=== PATIENT | female | born 2000 | race Hispanic/Latino ===

== ENCOUNTER 2020-02-17 11:30 | Emergency (ER) | payer OTHER, SELFPAY ==
[2020-02-17 11:44] VITALS: BP 118/61; PULSE 88; RESP 16; TEMP 36.7; O2SAT 100
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
== END 2020-02-17 12:12 | disposition home or self-care (01) ==
PROVIDERS: Emergency Provider Nurse Practitioner; PCP Physician Assistant
DX: L25.9 Unspecified contact dermatitis, unspecified cause (principal); K21.9 Gastro-esophageal reflux disease without esophagitis
CPT/HCPCS: 99213; G0463

== ENCOUNTER 2020-02-23 16:49 | Emergency (ER) | payer OTHER, SELFPAY ==
[2020-02-23 17:01] VITALS: BP 96/62; PULSE 94; RESP 16; TEMP 37.2; O2SAT 99
--- NOTE | 2020-02-23 17:04 | ED.GENADULT ---
HPI - General Adult General Chief complaint: Extremity Injury, Lower Stated complaint: left foot sprain Time Seen by Provider: 02/23/20 17:28 Source: patient and RN notes reviewed Limitations: no limitations History of Present Illness HPI narrative: 19-year-old (30 weeks and 2 days ) female presents today with complaints of left foot pain and swelling for 1 day. Ice without relief. Lashaun says she was going to get the milk and twisted her ankle and foot. Hurts to bear weight. No radiation of pain. No numbness, tingling, or loss of mobility. Exacerbating factor applying weight, palpation, and manipulation. Denies inability to bear weight. Denies discoloration. Denies suspect foreign body. The patient reports they have not been diagnosed with COVID-19. The patient reports they are not waiting for the results of a COVID-19 lab test. The patient reports they do not have fever, chills, weakness, fatigue, myalgia, or facial swelling. The patient reports they do not have a new or worsening cough or shortness of breath. Denies chest pain. The patient reports they do not have any rhinorrhea, congestion, sore throat, nausea, vomiting, abdominal pain, and diarrhea. Tolerating po intake well. Denies recent traveling. Denies concerns for COVID-19 or exposures been home since [id number] order except for essential household needs, working, and return home. At this time, patient is not suspected of having COVID-19. Some parts of this dictation were generated by voice recognition software and may contain typographical and/or grammatical inaccuracies. Related Data Allergies Allergy/AdvReac Type Severity Reaction Status Date / Time No Known Allergies Allergy Verified 02/17/20 11:50 Review of Systems Review of Systems: Narrative: CONSTITUTIONAL: Denies fever, chills, sweats. EYES: Denies visual changes, redness, discharge. ENT: Denies rhinorrhea, congestion, sore throat, otalgia. CARDIOVASCULAR: Denies chest pain, palpitations, edema. RESPIRATORY: Denies dyspnea, wheezing, cough. GASTROINTESTINAL: Denies abdominal pain, nausea, vomiting, diarrhea. GENITOURINARY: Denies dysuria, hematuria, abnormal discharge. SKIN: Denies rash or itching. MUSCULOSKELETAL: Denies acute back pain or myalgia. Complains of pain and swelling to left foot. NEUROLOGIC: Denies numbness or focal weakness. PSYCHIATRIC: Denies anxiety or depression. All other systems reviewed & are unremarkable except as noted in HPI and below. [facility] Past Medical History Medical History (Updated 02/23/20 @ 17:59 by YARELI Moss) Anxiety Constipation GERD (gastroesophageal reflux disease) Surgical History Surgical History (Updated 02/23/20 @ 17:59 by YARELI Moss) No significant past surgical history Family History Family History (Updated 02/23/20 @ 18:02 by YARELI Moss) Father Alive and well Mother Alive and well Grandparent Hypertension Grandparent Diabetes mellitus Grandparent Carcinoma of colon Social History Social History (Updated 02/23/20 @ 18:02 by YARELI Moss) Smoking status: Never smoker Smokeless tobacco user: chewing tobacco Second hand tobacco smoke exposure: Yes Alcohol intake: never Substance use: never Living arrangements: with family Gender identity (if verbalized by the patient): Female Comments At time of signature, agree with nurse past medical, surgical, social, and family history. There is no relevant family history pertinent to the presenting complaint. Exam Narrative: Exam Narrative: GENERAL: This is a well-nourished, well-developed patient, in no apparent distress. Ambulates with a limp favoring left lower extremity. HEAD: normocephalic, atraumatic. EYES: PERRL. Sclera clear/white. Vision is grossly intact. CARDIOVASCULAR: Regular rate and rhythm without murmurs, gallops, or rubs. RESPIRATORY: Clear to auscultation. Breath sounds equal
== END 2020-02-23 17:59 | disposition home or self-care (01) ==
PROVIDERS: Emergency Provider Nurse Practitioner Family; PCP Physician Assistant
DX: O99.89 Other specified diseases and conditions complicating pregnancy, childbirth and the puerperium (principal); S93.602A Unspecified sprain of left foot, initial encounter; Z3A.30 30 weeks gestation of pregnancy; F17.290 Nicotine dependence, other tobacco product, uncomplicated; W18.49XA Other slipping, tripping and stumbling without falling, initial encounter
CPT/HCPCS: 99213; G0463

== ENCOUNTER 2022-12-27 15:47 | Emergency (ER) | payer OTHER, SELFPAY ==
[2022-12-27 15:54] VITALS: BP 115/62; PULSE 81; RESP 18; TEMP 37.1; O2SAT 100
--- NOTE | 2022-12-27 16:47 | ED.SKABFB ---
HPI - Skin/Abscess/Foreign Bdy General Chief complaint: Skin/Abscess/Foreign Body Stated complaint: Rash On Body Time Seen by Provider: 12/27/22 16:47 Source: patient, RN notes reviewed and old records reviewed Mode of arrival: ambulatory Limitations: no limitations History of Present Illness HPI narrative: 22-year-old female presents to the [facility] with a rash to her body. Denies any new creams ointments lotions or detergents. States that started last night. Had been using signs eczema cream as well as anti-itch creams. Onset (ago): day(s) (1) Related Data Home Medications Medication Instructions Recorded Confirmed etonogestrel 68 mg subdermal 1 implant subdermal ONCE 12/27/22 12/27/22 implant (Nexplanon) Allergies Allergy/AdvReac Type Severity Reaction Status Date / Time No Known Allergies Allergy Verified 12/27/22 15:54 Review of Systems Review of Systems: All systems reviewed & are unremarkable except as noted in HPI and below Constitutional: Constitutional: Reports no additional constitutional complaints Eyes: Eyes: Reports no additional eye complaints ENT: Reports system reviewed and no additional complaints, except as documented Cardiovascular: Cardiovascular: Reports no additional cardiovascular complaints, Denies chest pain and Denies dyspnea Respiratory: Respiratory: Reports no additional respiratory complaints, Denies chest congestion, Denies cough and Denies dyspnea Gastrointestinal: Gastrointestinal: Reports no additional gastrointestinal complaints, Denies abdominal pain, Denies nausea and Denies vomiting Musculoskeletal: Musculoskeletal: Reports no additional musculoskeletal complaints Integumentary/Breasts: Skin/Breast: Reports as per HPI Neurologic: Reports system reviewed and no additional complaints, except as documented Psychiatric: Psychiatric: Reports no additional psychiatric complaints Allergic/Immunologic: Allergic/Immunologic: Reports no additional allergic/immunologic complaints [facility] Past Medical History Medical History Anxiety Constipation GERD (gastroesophageal reflux disease) Surgical History Surgical History No significant past surgical history Family History Family History Father Alive and well Mother Alive and well Grandparent Hypertension Grandparent Diabetes mellitus Grandparent Carcinoma of colon Social History Social History (Reviewed 12/27/22 @ 20:27 by YURI Villalta Smoking status: Never smoker Smokeless tobacco user: chewing tobacco Second hand tobacco smoke exposure: Yes Alcohol intake: never Substance use: never Living arrangements: with family Gender identity (if verbalized by the patient): Female Comments At the time of my signature, I reviewed and agree with the nursing past medical, surgical, social, and family history. There is no relevant family history pertinent to the patient complaint. Exam Const: General: cooperative, healthy appearing, comfortable, no acute distress, well developed, alert and well nourished Nutritional Appearance: well nourished Orientation/consciousness: patient oriented x3 Limitations: no limitations HENMT: Head: normal to inspection Ears: hearing grossly normal bilaterally and external ears normal Face/Nose/Sinus: Normal external nose present, Normal nares present, Normal nasal mucous membranes and turbinates present and normal facial exam Face and sinus: normal facial exam Mouth: Yes Normal oral and palatal mucosa present, Yes lip normal and Yes moist mucous membranes Throat: posterior oropharynx normal and uvula midline Eyes: General: appearance normal, both eyes and all related structures Alignment and Position: alignment normal Periorbital: periorbital findings normal Conjunctivae: conjunctiva
== END 2022-12-27 17:07 | disposition home or self-care (01) ==
PROVIDERS: Emergency Provider Nurse Practitioner; PCP Physician Assistant
DX: R21 Rash and other nonspecific skin eruption (principal); K21.9 Gastro-esophageal reflux disease without esophagitis
CPT/HCPCS: 99213; G0463

== ENCOUNTER 2023-06-04 17:48 | Emergency (ER) | payer OTHER, SELFPAY ==
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
[2023-06-04 17:58] VITALS: BP 112/67; PULSE 78; RESP 16; TEMP 37.1; O2SAT 99
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
== END 2023-06-04 19:26 | disposition home or self-care (01) ==
PROVIDERS: Emergency Provider Nurse Practitioner; PCP Physician Assistant
DX: S20.211A Contusion of right front wall of thorax, initial encounter (principal); Y04.8XXA Assault by other bodily force, initial encounter; K21.9 Gastro-esophageal reflux disease without esophagitis
CPT/HCPCS: 71101; 99213; G0463

== ENCOUNTER 2023-10-22 17:05 | Emergency (ER) | payer OTHER, SELFPAY ==
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
[2023-10-22 17:27] VITALS: BP 117/75; PULSE 80; RESP 16; TEMP 36.6; O2SAT 100
== END 2023-10-22 17:55 | disposition home or self-care (01) ==
PROVIDERS: Emergency Provider Nurse Practitioner; PCP Physician Assistant
DX: Z71.1 Person with feared health complaint in whom no diagnosis is made (principal); F17.220 Nicotine dependence, chewing tobacco, uncomplicated; K21.9 Gastro-esophageal reflux disease without esophagitis
CPT/HCPCS: 99212; G0463

== ENCOUNTER 2023-11-26 10:01 | Outpatient (CLI) | payer OTHER, SELFPAY ==
--- NOTE | 2023-11-26 10:22 | ECG_ITS ---
Measurements Intervals [place] Rate: 67 P: -10 [place]: 189 QRS: 23 QRSD: 99 T: 31 QT: 376 QTc: 399 Interpretive Statements SINUS RHYTHM LOW QRS VOLTAGE IN PRECORDIAL LEADS [QRS DEFLECTION < 1.0 mV IN CHEST LEADS] NO PREVIOUS ECG AVAILABLE FOR COMPARISON Electronically Signed On 11-26-2023 15:45:41 ENVIRONMENTAL ADVISER by Abundio Brady M.D.
== END 2023-11-26 10:02 | disposition home or self-care (01) ==
PROVIDERS: PCP Physician Assistant; Visit Provider Physician Assistant
DX: R00.2 Palpitations (principal)
CPT/HCPCS: 93005

== ENCOUNTER 2024-03-23 12:59 | Emergency (ER) | payer OTHER, SELFPAY ==
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
[2024-03-23 13:19] VITALS: BP 100/82; PULSE 97; RESP 16; TEMP 36.4; O2SAT 100
[2024-03-23 13:21] VITALS: BP 100/82; PULSE 97; RESP 16; TEMP 36.4; O2SAT 100
== END 2024-03-23 13:40 | disposition home or self-care (01) ==
PROVIDERS: Emergency Provider Nurse Practitioner; PCP Physician Assistant
DX: O99.519 Diseases of the respiratory system complicating pregnancy, unspecified trimester (principal); J06.9 Acute upper respiratory infection, unspecified
CPT/HCPCS: 87081; 87804; 87880; 99213; G0463

== ENCOUNTER 2025-10-05 17:47 | Emergency (ER) | payer OTHER, SELFPAY ==
--- NOTE | ~2025-10-05 | XR_ITS ---
XR abdomen/kub 1V 10/05/2025 18:40 INDICATION: Abdomen pain TECHNIQUE: KUB COMPARISON: None FINDINGS: Bowel gas pattern is normal. There is no evidence of free air, mass, organomegaly, ascites or obstruction. No abnormal calculi are seen. The bones appear intact. IMPRESSION: 1: No acute abdominal abnormality identified. Reviewed, dictated and finalized at location O. [employer]
--- NOTE | 2025-10-05 17:51 | ED_ITS ---
HPI - Abdominal Pain General Chief Complaint: Abdominal Pain Stated Complaint: Pelvic/Abdominal Pain Time Seen by Provider: 10/05/25 18:10 Source: patient Mode of arrival: ambulatory Limitations: no limitations History of Present Illness HPI narrative: Lashaun is a 25-year-old female patient presenting to the clinic today with complaints of abdomen pain/pelvic pain 3-4 days. She reports she is having abdominal cramping before and after having a bowel movement. She does have a history of IBS. Also reports some lower pain in her pelvis area. Her menses is been irregular. Last intercourse was last night. Denies any abnormal vaginal discharge or foul odor. No concerns for STIs. She denies any urinary symptoms. States pains an 8/10 at its worst when cramping and after she has a bowel movement she feels relief but then it starts cramping again. Denies any fevers, chills, body aches. Denies any back pain. States that she is straining to have a bowel movement. Related Data Home Medications ?Medication ?Instructions ?Recorded ?Confirmed ?Last Taken ?Type nortriptyline 10 mg capsule mg 10/05/25 Unknown Histo ry Allergies Allergy/AdvReac Type Severity Reaction Status Date / Time No Known Allergies Allergy Verified 10/05/25 18:17 Review of Systems Review of Systems: Pertinent positives per HPI. Patient denies any fever, chills, rash, headache, visual changes, dizziness, cough, runny nose, sore throat, shortness of breath, chest pain, palpitations, nausea, vomiting, diarrhea, or any urinary issues. [facility] Past Medical History Medical History Right pulmonary contusion Anxiety Constipation GERD (gastroesophageal reflux disease) Surgical History Surgical History No significant past surgical history Family History Family History Father Alive and well Mother Alive and well Grandparent Hypertension Grandparent Diabetes mellitus Grandparent Carcinoma of colon Social History Social History Smoking status: Never smoker Smokeless tobacco user: chewing tobacco Second hand tobacco smoke exposure: Yes Alcohol intake: never Substance use: never Living arrangements: with family Gender identity (if verbalized by the patient): Female Comments At the time of my signature, I reviewed and agree with the nursing past medical, surgical, social, and family history. There is no relevant family history pertinent to the patient complaint. Exam Narrative: General: Well-developed, obese, in no apparent distress. Head: Normocephalic, atraumatic. Cardio: Regular rate and rhythm, s1 and s2 normal, no murmur appreciated. Resp: Clear to auscultation bilaterally, no rhonchi, rales, wheezing or rubs. Abdomen: Soft, pliable, bowel sounds present in all quadrants, bilateral lower/pelvis tender to palpation, no organomegly, no CVAT tenderness. Course Course Level of Care: Express Care Visit Vital Signs Vital signs: Vital Signs Temperature 36.2 C L 10/05/25 17:56 Pulse Rate 63 10/05/25 17:56 Respiratory Rate 20 10/05/25 17:56 Blood Pressure 117/66 10/05/25 17:56 Pulse Oximetry 99 10/05/25 17:56 Oxygen Delivery Room Air 10/05/25 17:56 Temperature 36.2 C L 10/05/25 17:56 Pulse Rate 63 10/05/25 17:56 Respiratory Rate 20 10/05/25 17:56 Blood Pressure 117/66 10/05/25 17:56 Pulse Oximetry 99 10/05/25 17:56 Oxygen Delivery Room Air 10/05/25 17:56 [facility] MDM Narrative Medical decision making narrative: At the time of visit patient is resting comfortably on the exam table. Patient appears to be nontoxic. Complaints of abdomen pain/pelvic pain 3-4 days. She reports she is having abdominal cramping before and after having a bowel movement. She does have a history of IBS. Also reports some lower pain in her pelvis area. Her menses is been irregular. Last intercourse was last night. Denies any abnormal vaginal discharge or foul odor. No concerns for STIs. She denies any urinary symptoms. States pains an 8/10 at its worst when cramping and after she has a bowel movement she feels relief but then it starts cramping again. Denies any fevers, chills, body aches. Denies any back pain. On exam patient has soft, pliable, nondistended abdomen, tenderness to palpation over the bilateral lower abdomen/pelvis, no CVAT tenderness, no organomegaly, bowel sounds present all 4 quadrants. States that she is straining to have a bowel movement. Urinalysis dip, bedside , and KUB x-ray was ordered. Labs: Urinalysis dip positive for trace of leukocytes and trace of blood.- patient is not reporting any UTI symptoms. We will send this for culture. Bedside test was negative Diagnostics: KUB x-ray was performed and was negative for any acute abdomen pathology/abnormality. Plan: I suspect patient has abdominal cramping-likely due to IBS symptoms. Recommend follow-up with GI specialist and OBGYN if symptoms persist. Supportive measures were discussed with the patient and they voiced understanding discharge instructions and agrees to treatment plan. Return precautions reviewed Differential Diagnosis Differential Diagnosis: Differential diagnostic considerations for acute abdominal pain include surgical abdominal etiology, ischemic bowel, inflammatory bowel disease, gastritis, PUD, gastroenteritis, cardiac etiology, appendicitis, diverticulitis, bowel obstruction, kidney stone, pyelonephritis, abdominal aortic aneurysm, pancreatitis, constipation, endometriosis. Differential diagnostic considerations for female urogenital issues include urinary tract infection, bacterial vaginosis, cervicitis, ovarian cyst, vaginitis, STI exposure, ovarian torsion, ectopic , cyst of Bartholin?s gland, cystitis, dysmenorrhea. Lab Data Labs: Lab Results 10/05/25 Range/Units 18:22 POC Urine Color Yellow POC Urine Clarity Clear POC Urine pH 6.0 POC Ur Specif [place] 1.015 POC Urine Protein Negative (Negative) POC Ur Glucose (UA) Negative (Negative) POC Urine Ketones Negative (Negative) POC Urine Blood Trace (Negative) POC Urine Nitrite Negative (Negative) POC Urine Bilirubin Negative (Negative) POC Urine Urobilinogen 0.2 POC U Leukocyte Esteras Trace (Negative) POC Urine HCG, Qual Negative (Negative) Imaging Data Radiologist's impression: ITS Impressions Abdomen X-Ray 10/05/25 18:42 IMPRESSION: 1: No acute abdominal abnormality identified. Discharge Plan Discharge Clinical Impression: Abdominal cramping, History of IBS Patient Disposition: Home Condition: Stable Instructions: Antibiotic Form, Abdominal Pain (ED) Additional Instructions: Urine shows a trace of leukocytes and trace of blood. We will send urine for culture. Bedside test was negative. Abdomen x-ray shows no acute abdomen pathology. Your symptoms may be due to your IBS. Increase fluids and stay well hydrated Take MiraLax daily for constipation-1 scoop in 8 oz of water or juice Increase fiber in your diet Follow-up with your OBGYN and GI specialist if symptoms persist Patient Language: Greenlandic Prescriptions: No Action nortriptyline 10 mg capsule Follow-up/Referrals: PHYSICIAN NOT ON STAFF,NONSTAFF [Primary Care Provider] Time of Disposition: 18:52 Quality NIHSS Nursing Documentation ED NIHSS nursing documentation: reviewed/agree
[2025-10-05 17:56] VITALS: BP 117/66; PULSE 63; RESP 20; TEMP 36.2; O2SAT 99
[2025-10-05 18:32] LABS: BEDSIDEPREGUCG Negative (Negative); EDUAAPPEAR Clear; EDUABILI Negative (Negative); EDUABLOOD Trace (Negative); EDUACOLOR1 Yellow; EDUAGLUCOSE Negative (Negative); EDUAKETONE Negative (Negative); EDUALEUKO Trace (Negative); EDUANITRATE Negative (Negative); EDUAPH 6.0; EDUAPROTEIN Negative (Negative); EDUASPGRAVITY 1.015; EDUAUROBILI 0.2
== END 2025-10-05 18:55 | disposition home or self-care (01) ==
PROVIDERS: Emergency Provider Nurse Practitioner Family
DX: R10.31 Right lower quadrant pain (principal); R10.32 Left lower quadrant pain; Z87.19 Personal history of other diseases of the digestive system; F17.220 Nicotine dependence, chewing tobacco, uncomplicated; K21.9 Gastro-esophageal reflux disease without esophagitis
CPT/HCPCS: 74018; 81003; 81025; 87086; 99213; G0463